=== PATIENT | male | born 1980 | race African-American/Black ===

== ENCOUNTER 2020-07-26 11:02 | Emergency (ER) | payer MEDICAID ==
[~2020-07-26] VITALS: Ht 175.3 cm; Wt 83.9 kg
[~2020-07-26 11:02] MED LIST: TRAMADOL HCL50 MG ORAL
[2020-07-26 11:21] VITALS: BP 146/86
--- NOTE | 2020-07-26 11:25 | Emergency Room Report ---
History of Present Illness General Chief Complaint: Behavioral Complaint Source: Patient (Doc Ness MD) Present Illness HPI Disclaimer: Please note that this report is being documented using [employer] technology. This can lead to erroneous entry secondary to incorrect i nterpretation by the dictating instrument. HPI: 40-year-old male presents to the ED reporting of hopelessness suicidal thoughts. Patient has history of bipolar disorder and is prescribed 10 mg Zyprexa daily as well as 0.5 mg Klonopin twice daily by psychiatrist in [place], Dr. Thomas. Patient's been without his medication for the past week as he missed a phone appointment with psychiatry to refill his medications. Is also been using methamphetamine. He reports changes in interpersonal relationships, increasing paranoid thoughts and believes somebody is breaking into his online accounts and manipulating them. He denies hearing voices or having visual hallucinations. He reports increasing paranoia and thoughts of hopelessness. He states he was considering overdosing on heroin and pain medication. He has not yet attempted to harm himself. 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 EOMI. Cardiovascular: Mildly tachycardic. S1 and S2 normal. No murmur appreciated Resp: Normal work of breathing. No cough, wheezing or crackles appreciated Abdomen: Abdomen is soft, nondistended. Nontender Skin: Intact. No abrasions, laceration or rash over the exposed skin MSK: Normal tone and bulk. Moving all extremities. No obvious deformity. Neuro: Awake and alert. Mentating appropriately. Denies auditory or visual hallucinations. Does not appear to be responding to internal stimuli. (Doc Ness MD) Medical Decision Making Diagnostic Impression: Primary Impression: Behavioral change Additional Impression: Amphetamine abuse ER Course 40-year-old male presents for intermittent suicidal thoughts increased paranoid thoughts. Has been without his medications for 1 week. Will give a dose of Zyprexa here. Sent off labs for possible psychiatric admission. He is calm and collected and does not appear to be responding to stimuli or any evidence of psychosis at this time. Labs returned within normal limits aside testing positi ve for methamphetamines to which the patient admits. He is medically cleared for psychiatric evaluation. Laboratory Tests Test 07/26/20 11:15 07/26/20 11:45 Urine Opiates Screen Negative (NEGATIVE) Urine Barbiturates Screen Negative (NEGATIVE) Phencyclidine (PCP) Screen Negative (NEGATIVE) Urine Amphetamines Screen Positive (NEGATIVE) H Urine Benzodiazepines Screen Negative (NEGATIVE) Urine Cocaine Screen Negative (NEGATIVE) Urine Marijuana (THC) Screen Negative (NEGATIVE) White Blood Count 7.2 K/UL (4.8-10.8) Red Blood Count 6.03 M/UL (4.70-6.10) Hemoglobin 16.0 G/DL (14.2-18.0) Hematocrit 47.0 % (42.0-52.0) Mean Corpuscular Volume 78 FL (80-99) L Mean Corpuscular Hemoglobin 26.5 PG (27.0-31.0) L Mean Corpuscular Hemoglobin Concent 33.9 G/DL (32.0-36.0) Red Cell Distribution Width 14.5 % (11.6-14.8) Platelet Count 290 K/UL (150-450) Mean Platelet Volume 7.3 FL (6.5-10.1) Neutrophils (%) (Auto) 72.7 % (45.0-75.0) Lymphocytes (%) (Auto) 20.0 % (20.0-45.0) Monocytes (%) (Auto) 6.6 % (1.0-10.0) Eosinophils (%) (Auto) 0.2 % (0.0-3.0) Basophils (%) (Auto) 0.4 % (0.0-2.0) Sodium Level 138 MMOL/L (136-145) Potassium Level 4.6 MMOL/L (3.5-5.1) Chloride Level 102 MMOL/L (98-107) Carbon Dioxide Level 26 MMOL/L (21-32) Anion Gap 10 mmol/L (5-15) Blood Urea Nitrogen 21 mg/dL (7-18) H Creatinine 1.2 MG/DL (0.55-1.30) Estimated Glomerular Filtration Rate > 60 mL/min (>60) Glucose Level 115 MG/DL (74-106) H Calcium Level 9.4 MG/DL (8.5-10.1) Total Bilirubin 0.3 MG/DL (0.2-1.0) Aspartate Amino Transferase (AST) 19 U/L (15-37) Alanine Aminotransferase (ALT) 40 U/L (12-78) Alkaline Phosphatase 79 U/L (46-116) Total Protein 9.1 G/DL (6.4-8.2) H Albumin 4.0 G/DL (3.4-5.0) Globulin 5.1 g/dL Albumin/Globulin Ratio 0.8 (1.0-2.7) L Salicylates Level 1.9 ug/mL (2.8-20) L Acetaminophen Level < 2 MCG/ML (10-30) L Serum Alcohol < 3 mg/dL (Doc Ness MD) ER Course I reevaluated this patient. Is more oriented and calm and collected. Denies SI or HI. Not on hold. I do not believe patient requires emergent psychiatric evaluation or placement at this time. Does not have his medications of Zyprexa and Klonopin.. I will provide refills. I will provide referrals. Safe for discharge with close outpatient follow-up Laboratory Tests Test 07/26/20 11:15 07/26/20 11:45 Urine Opiates Screen Negative (NEGATIVE) Urine Barbiturates Screen Negative (NEGATIVE) Phencyclidine (PCP) Screen Negative (NEGATIVE) Urine Amphetamines Screen Positive (NEGATIVE) H Urine Benzodiazepines Screen Negative (NEGATIVE) Urine Cocaine Screen Negative (NEGATIVE) Urine Marijuana (THC) Screen Negative (NEGATIVE) White Blood Count 7.2 K/UL (4.8-10.8) Red Blood Count 6.03 M/UL (4.70-6.10) Hemoglobin 16.0 G/DL (14.2-18.0) Hematocrit 47.0 % (42.0-52.0) Mean Corpuscular Volume 78 FL (80-99) L Mean Corpuscular Hemoglobin 26.5 PG (27.0-31.0) L Mean Corpuscular Hemoglobin Concent 33.9 G/DL (32.0-36.0) Red Cell Distribution Width 14.5 % (11.6-14.8) Platelet Count 290 K/UL (150-450) Mean Platelet Volume 7.3 FL (6.5-10.1) Neutrophils (%) (Auto) 72.7 % (45.0-75.0) Lymphocytes (%) (Auto) 20.0 % (20.0-45.0) Monocytes (%) (Auto) 6.6 % (1.0-10.0) Eosinophils (%) (Auto) 0.2 % (0.0-3.0) Basophils (%) (Auto) 0.4 % (0.0-2.0) Sodium Level 138 MMOL/L (136-145) Potassium Level 4.6 MMOL/L (3.5-5.1) Chloride Level 102 MMOL/L (98-107) Carbon Dioxide Level 26 MMOL/L (21-32) Anion Gap 10 mmol/L (5-15) Blood Urea Nitrogen 21 mg/dL (7-18) H Creatinine 1.2 MG/DL (0.55-1.30) Estimat Glomerular Filtration Rate > 60 mL/min (>60) Glucose Level 115 MG/DL (74-106) H Calcium Level 9.4 MG/DL (8.5-10.1) Total Bilirubin 0.3 MG/DL (0.2-1.0) Aspartate Amino Transf (AST/SGOT) 19 U/L (15-37) Alanine Aminotransferase (ALT/SGPT) 40 U/L (12-78) Alkaline Phosphatase 79 U/L (46-116) Total Protein 9.1 G/DL (6.4-8.2) H Albumin 4.0 G/DL (3.4-5.0) Globulin 5.1 g/dL Albumin/Globulin Ratio 0.8 (1.0-2.7) L Salicylates Level 1.9 ug/mL (2.8-20) L Acetaminophen Level < 2 MCG/ML (10-30) L Serum Alcohol < 3 mg/dL (Janes Victoria MD) Last Vital Signs Date Time Temp Pulse Resp B/P (MAP) Pulse Ox O2 Delivery O2 Flow Rate FiO2 07/26/20 11:10 98.6 128 25 146/86 (106) 95 Room Air (Doc Ness MD) Status: improved (Janes Victorai MD) Disposition: HOME, SELF-CARE Condition: Stable Scripts Clonazepam* (KLONOPIN*) 0.5 Mg Tablet 0.5 MG ORAL Q12HR, #15 TAB 0 Refills Prov: Janes Victoria MD 07/26/20 Olanzapine* (ZYPREXA*) 10 Mg Tablet 10 MG ORAL DAILY, #30 TAB 0 Refills Prov: Janes Victoria MD 07/26/20 Doc Ness MD Jul 26, 2020 11:25 Janes Victoria MD Jul 26, 2020 18:46
--- NOTE | 2020-07-26 11:31 | NUR ---
ED Nurse Note: pt appears anxious and restless. he stated he's been out of his zyprexa and klonipin for a week. admitted to using meth yesterday. states he's suicidal and has a plan to overdose on narcotics. denies homicidal thoughts. reported to that pt has used meth in the last 24hrs.
--- NOTE | 2020-07-26 11:54 | NUR ---
ED Nurse Note: pt honest and surrendered a pocket knife that can't be closed. his sweatshirt and knife was placed in locker 2 and locked room secured from potential harmful items
[2020-07-26 11:56] LABS: BASOPHILS % (AUTO) 0.4 % (0.0-2.0); EOSINOPHILS % (AUTO) 0.2 % (0.0-3.0); MEAN CORPUSCULAR VOLUME 78 FL (80-99); MONOCYTES % (AUTO) 6.6 % (1.0-10.0); NEUTROPHILS % (AUTO) 72.7 % (45.0-75.0); PLATELET COUNT 290 K/UL (150-450); RED BLOOD COUNT 6.03 M/UL (4.70-6.10); RED CELL DISTRIBUTION WIDTH 14.5 % (11.6-14.8); WHITE BLOOD COUNT 7.2 K/UL (4.8-10.8)
[2020-07-26 12:06] LABS: ANION GAP 10 mmol/L (5-15); BLOOD UREA NITROGEN 21 mg/dL (7-18); CALCIUM 9.4 MG/DL (8.5-10.1); CARBON DIOXIDE 26 MMOL/L (21-32); CHLORIDE 102 MMOL/L (98-107); CREATININE 1.2 MG/DL (0.55-1.30); POTASSIUM 4.6 MMOL/L (3.5-5.1); SODIUM 138 MMOL/L (136-145)
[2020-07-26 12:10] LABS: ALANINE AMINOTRANSFERASE 40 U/L (12-78); ALBUMIN/GLOBULIN RATIO 0.8 (1.0-2.7); ALKALINE PHOSPHATASE 79 U/L (46-116); ASPARTATE AMINO TRANSFERASE 19 U/L (15-37); BILIRUBIN,TOTAL 0.3 MG/DL (0.2-1.0)
--- NOTE | 2020-07-26 12:12 | NUR ---
ED Nurse Note: offered pt food and drink. he declined food, drinking water
--- NOTE | 2020-07-26 12:32 | NUR ---
ED Nurse Note: pt is on his phone in no noted distress
[2020-07-26 14:45] VITALS: BP 133/87
--- NOTE | 2020-07-26 15:33 | NUR ---
ED Nurse Note: pt resting in no noted distress.
[2020-07-26] MEDS ORDERED: KLONOPIN0.5 MG ORAL (15:39)
[2020-07-26] MEDS ORDERED: ZYPREXA10 MG ORAL (15:39)
--- NOTE | 2020-07-26 15:49 | NUR ---
ER DISCHARGE NOTE: Patient is cleared to be discharged per ERMD, pt is aox4, on room air, with stable vital signs. pt was given dc and prescription instructions, pt was able to verbalize understanding, pt id band removed. Pt is able to ambulate with steady gait. pt took all belongings, i.e. sweatshirt and knife
== END 2020-07-26 15:50 | disposition home or self-care (01) ==
LOC: EMR 11:47
DX: F69 Unspecified disorder of adult personality and behavior (principal); F15.10 Other stimulant abuse, uncomplicated; F31.9 Bipolar disorder, unspecified; Z79.899 Other long term (current) drug therapy
CPT/HCPCS: 36415; 80053; 80307; 85025; G0480; G0481; Z7502; 99284